=== PATIENT | male | born 2005 | race Caucasian/White ===

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

== ENCOUNTER 2025-02-24 21:24 | Emergency (ER) | payer OTHER, SELFPAY ==
--- NOTE | 2025-02-24 21:25 | ED_ITS ---
HPI - Male Genitourinary General Chief complaint: Urogenital-Male Stated complaint: wants STD tested Time Seen by Provider: 02/24/25 21:25 Source: patient Mode of arrival: ambulatory Limitations: no limitations History of Present Illness HPI Narrative: Patient is a 19-year-old male with no complaints or exposures to STDs but concerned to want STD testing. He is here with a friend and they both getting STD testing this evening. he did have some blood on the rectum after anal intercourse with a male. He mostly had questions about the blood situation. MD Complaint: other ( Asymptomatic; concerns for STDs) Onset (ago): unknown Duration: other ( No pain) Location: penis ( blood on the partners penis from his rectum the patient noted on last intercourse) Quality: other ( asymptomatic; no pain) Relieving factors: none Exacerbating factors: none Context: other ( concerns for STDs but no known exposures) Associated symptoms: Reports denies other symptoms Related Data Sexually active: Yes Home Medications ?Medication ?Instructions ?Recorded ?Confirmed ?Last Taken ?Type No Home Medications 03/27/24 03/27/24 Unknown History Allergies Allergy/AdvReac Type Severity Reaction Status Date / Time amoxicillin (From Augmentin) Allergy Rash Verified 03/27/24 14:56 clavulanic acid (From Allergy Rash Verified 03/27/24 14:56 Augmentin) Review of Systems Review of Systems: All systems reviewed & are unremarkable except as noted in HPI and below Constitutional: Constitutional: Reports no additional constitutional complaints Eyes: Eyes: Reports no additional eye complaints ENT: Reports system reviewed and no additional complaints, except as docume nted Cardiovascular: Cardiovascular: Reports no additional cardiovascular complaints Respiratory: Respiratory: Reports no additional respiratory complaints Gastrointestinal: Gastrointestinal: Reports no additional gastrointestinal complaints Genitourinary: Genitourinary: Reports no additional male genitourinary complaints Musculoskeletal: Musculoskeletal: Reports no additional musculoskeletal complaints Integumentary/Breasts: Skin/Breast: Reports system reviewed and no additional complaints, except as docu Neurologic: Reports system reviewed and no additional complaints, except as documented Psychiatric: Psychiatric: Reports no additional psychiatric complaints Endocrine: Endocrine: Reports no additional endocrine complaints Hematologic/Lymphatic: Hematologic/Lymphatic: Reports no additional hematologic/lymphatic complaints Allergic/Immunologic: Allergic/Immunologic: Reports no additional allergic/immunologic complaints [facility] Past Medical History Medical History No significant medical problems Surgical History Surgical History History of placement of ear tubes Social History Social History Smoking status: Former smoker Alcohol intake: never Substance use: never Substance use type: does not use Additional living arrangements comments: pediatric patient lives with family Gender identity (if verbalized by the patient): Male Exam Const: General: healthy appearing Nutritional Appearance: well nourished Limitations: no limitations HENMT: Head: normal to inspection Ears: TM's normal bilaterally Face/Nose/Sinus: Normal external nose present Eyes: Conjunctivae: conjunctivae normal Pupils: Equal, round and reactive pupils present EOM: EOMs intact bilaterally Neck: Neck: normal visual inspection Chest: Chest palpation & inspection: normal inspection of the chest Resp: Effort & Inspection: normal respiratory effort and not labored Auscultation: clear to auscultation bilaterally and no crackles Cardio: Rate: regular rate Rhythm: regular rhythm Heart sounds: no murmurs GI: Inspection: non-distended GI Palp: Yes Soft to palpation and No Tenderness to palpation present (GI) Auscultation: normal bowel sounds : General: Yes bladder normal to palpation Other: deferred exam; patient asymptomatic Back/Spine/Pelvis: Back: no CVA tenderness Skin: General skin exam: normal color Rashes: no rashes Wounds: no wounds Neuro: General: patient oriented x3, moves all extremities and no meningeal signs Cranial nerves: Yes CN's II-XII intact bilaterally Speech: normal speech Gait exam (Neuro): Normal gait present Extrem: General: normal to inspection Psych: Mental Status: mental status grossly normal Affect: normal affect Attitude: cooperative Course Vital Signs Vital signs: Vital Signs Temperature 36.6 C 02/24/25 21:28 Pulse Rate 90 02/24/25 21:28 Respiratory Rate 20 02/24/25 21:28 Blood Pressure 138/86 02/24/25 21:28 Pulse Oximetry 99 02/24/25 21:28 Oxygen Delivery Room Air 02/24/25 21:28 Temperature 36.5 C 02/24/25 22:13 Pulse Rate 80 02/24/25 22:13 Respiratory Rate 18 02/24/25 22:13 Blood Pressure 121/71 02/24/25 22:13 Pulse Oximetry 99 02/24/25 22:13 Oxygen Delivery Room Air 02/24/25 22:13 MDM - Male Genitourinary MDM Narrative Medical decision making narrative: patient is a 19-year-old male with desiring STD testing and review blood on rectum after male intercourse. Reassurance given about the possibilities of the blood being from hemorrhoids or breaking of some skin on anal intercourse. STD check urine and blood. Lab Data Attestation: I reviewed the patient's lab results. Labs: Lab Results 02/24/25 Range/Units 22:10 CSF HIV-1 p24 Ag Scrn Pending RPR Pending C. trachomatis (PCR) Pending HIV 1&2 Antibody Rapid Pending N. gonorrhoeae (PCR) Pending Discharge Plan Discharge Clinical Impression: Potential exposure to STD Patient Disposition: Home Condition: Stable Instructions: Sexually Transmitted Diseases (ED) Patient Language: Armenian Prescriptions: No Action No Home Medications Follow-up/Referrals: Shasha Best MD [Primary Care Provider] - Time of Disposition: 22:01
--- OUTSIDE RECORDS SUMMARY | 2025-02-24 21:25 | XMS_ITS | Clinical Summary ---
Author Organization [facility] Address [address] [place] [address] Care Team Providers Care Environmental Field Technician Name Role Phone Unavailable Primary Care Provider Unavailabl e Source Comments [facility],non-owned Affiliates and Associated Physician Practices is amultiple site organization consisting of ambulatory clinics and hospital sitesin [place], [place], [place] and [place]. This disclosure is being madepursuant to the Care Everywhere program and may not contain all information available regarding this patient. Last updated 18.[facility] [employer] Social History Tobacco Use Types Packs/Day Years Used Date Smoking Tobacco: Never Assessed Sex and Gender Information Value Date Recorded Sex Assigned at Not on file Legal Sex Male 3:09 PM [employer] Gender Identity Not on file Sexual Orientation Not on file Plan of Treatment Health Maintenance Due Date Last Done Comments HIV SCREENING 2020 HPV VACCINE (1 - Male 3-dose series) 2020 MENINGOCOCCAL (Group B) VACC INE SHARED DECISION-MAKING (1 of 2 - Standard) 2021 HEPATITIS C SCREENING 08/14/2023 COVID-19 VACCINE (1 - 2023-2 5 season) 2024 DEPRESSION SCREENING 07/20/2024 DTAP/TDAP/TD VACCINES (1 - Tdap) 2024 HEPATITIS B VACCINE (1 of 3 - 19+ 3-dose series) 2024 INFLUENZA VACCINE (#1) 2025 ZOSTER VACCINE (1 of 2) 2055 HIB VACCINE Aged Out No longer eligi ble based on patient's age to complete this topic MENINGOCOCCAL GROUPS A/C/Y/W VACCINE Aged Out No longer eligible b ased on patient's age to complete this topic PNEUMOCOCCAL VACCINE Aged Out No long er eligible based on patient's age to complete this topic
--- OUTSIDE RECORDS SUMMARY | 2025-02-24 21:25 | XMS_ITS | Clinical Summary ---
Author Organization [facility] Address [facility] [address] [address] [place] [address] Care Team Providers Care Psychiatric Aides Teacher Name Role Phone Unavailable Primary Care Provider Unavailabl e Social History Tobacco Use Types Packs/Day Years Used Date Smoking Tobacco: Never Assessed Sex and Gender Information Value Date Recorded Sex Assigned at Not on file Legal Sex Male 11:30 PM [employer] Gender Identity Not on file Sexual Orientation Not on file Last Filed Vital Signs Vital Sign Reading Time Taken Comments Blood Pressure - - Pulse - - Temperature - - Respiratory Rate - - Oxygen Saturation - - Inhaled Oxygen Concentration - - Weight 35.4 kg (78 lb) 12/24/2016 2:34 PM CDT Height 149.9 cm (4' 11) 12/24/2016 2:34 PM CDT Body Mass Index 15.75 12/24/2016 2:34 PM CDT Body Mass Index Percentile 19.09% 12/24/2016 2:3 4 PM CDT Growth Chart: CDC (Boys, 2-2 0 Years) Plan of Treatment Health Maintenance Due Date Last Done Comments Annual Physical 2008 HPV Vaccines (1 - Male 3-dos e series) 2020 Meningococcal B Vaccine (1 o f 2 - Standard) 2021 Hepatitis C 2023 COVID-19 Vaccine (1 - 2023-2 5 season) 2024 DTaP, Tdap and Td Vaccines ( 1 - Tdap) 2024 Hepatitis B Vaccines (1 of 3 - 19+ 3-dose series) 2024 Meningococcal Vaccine Aged Out No david adelaide eligible based on patient's age to complete this topic Pneumococcal Vaccine: Pediat rics (0 to 5 Years) and At-Risk Patients (6 to 49 Years) Aged Out No longer eligible b ased on patient's age to complete this topic RSV Immunizations Under 20 Months Aged Out No longer eligible based on patient's age to complete this topic
[2025-02-24 21:28] VITALS: BP 138/86; PULSE 90; RESP 20; TEMP 36.6; O2SAT 99
[2025-02-24 22:13] VITALS: BP 121/71; PULSE 80; RESP 18; TEMP 36.5; O2SAT 99
[2025-02-24 23:31] LABS: HIV 1 P24 AG Negative (Negative); HIV 1/2 AB Negative (Negative)
[2025-02-26 13:07] LABS: RPR Non Reactive (Non Reactive)
== END 2025-02-24 22:14 | disposition home or self-care (01) ==
PROVIDERS: Emergency Provider Emergency Medicine; PCP Internal Medicine
DX: Z11.3 Encounter for screening for infections with a predominantly sexual mode of transmission (principal); Z87.891 Personal history of nicotine dependence
CPT/HCPCS: 36415; 86592; 87491; 87591; 87806; 99283